=== PATIENT | female | born 2005 | race Hispanic/Latino ===

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

== ENCOUNTER 2023-04-09 16:49 | Emergency (ER) | payer OTHER, SELFPAY ==
[2023-04-09 17:40] LABS: Absolute Lymphocytes (CBC) 2.8 K/uL (0.7-4.9); Hematocrit 41.2 % (36.0-45.0); Lymphocytes % 32.2 % (15.3-44.8); MCV 89.4 fL (80-100); MPV 7.9 fL (7.6-11.3); Platelets 273 thou/uL (152-406); RBC Red Blood Cell Count 4.61 M/uL (3.86-4.86)
[2023-04-09] MEDS ORDERED: DIAZEPAM 5 MG TABLET ONE (18:03)
[2023-04-09] MEDS ORDERED: dexAMETHasone 10 MG/ML VIAL ONE (18:04)
[2023-04-09] MEDS ORDERED: MORPHINE 2 MG/ML SYR ONE (18:04)
[2023-04-09] MEDS ORDERED: ONDANSETRON 4 MG/2 ML VIAL ONE (18:04)
[2023-04-09] MEDS ORDERED: KETOROLAC 30 MG/ML INJ ONE (18:04)
[2023-04-09] MEDS ORDERED: NA CHLORIDE 0.9% 1,000 ML ONE (18:04)
[2023-04-09 18:08] LABS: Albumin 3.8 g/dL (3.4-5.0); Bilirubin Total 0.4 mg/dL (0.2-1.0); Potassium 3.9 mEq/L (3.5-5.1); Protein, Total 8.3 g/dL (6.4-8.2)
[2023-04-09 18:12] LABS: Specific Gravity 1.016 (1.005-1.030)
[2023-04-09 18:22] LABS: Specific Gravity 1.016 (1.005-1.030); Urine Bacteria None Seen /HPF (<20); Urine Bilirubin NEGATIVE (Negative); Urine Blood Negative (Negative); Urine Clarity Turbid (Clear); Urine Color Light-Yellow (Yellow); Urine Glucose NEGATIVE (Negative); Urine Mucus Slight /HPF (None Seen); Urine Protein NEGATIVE (Negative); Urine RBC <5 /HPF (None Seen); Urine Urobilinogen Normal (Normal)
--- NOTE | 2023-04-09 18:54 | RAD REPORT ---
EXAM DESCRIPTION: CT - Spine Lumbar Wo Con - 04/09/2023 6:24 pm CLINICAL HISTORY: PAIN COMPARISON: No comparisons TECHNIQUE: Axial noncontrast CT imaging of the lumbar spine was performed with coronal and sagittal re-formatted images. All CT scans are performed using dose optimization technique as appropriate and may include automated exposure control or mA/KV adjustment according to patient size. FINDINGS: No acute lumbar spine fracture seen. No aggressive marrow pattern or malalignment. Paraspinal tissues are normal in thickness. No paraspinal abscess or hematoma seen. Intervertebral disc disease assessment is inherently limited by CT. Small slightly left eccentric lynette tral disc protrusion present at L5-S1 . Within these limitations, no high-grade canal stenosis suspec gabriel. IMPRESSION: No acute fracture lumbar spine. Small central disc protrusion at L5-S1 is slightly left eccentric. No specific findings to explain a right-sided radiculopathy. Could consider MRI if symptom s persist. No evidence of spinal stenosis.
--- NOTE | 2023-04-09 18:58 | ER ---
Nurse's Notes [facility] Name: Niyah Galarza Age: 18 yrs Sex: Female : 2005 Arrival Date: 04/09/2023 Time: 16:49 Bed 14 Private MD: Diagnosis: Low back pain;Radiculopathy, lumbar region;Intervertebral disc disorders with radiculopathy, lumbosacral region-SMALL CENTRAL DISC PROTRUSION L5-S1, ECCENTRIC TO THE LEFT Presentation: 04/09 16:56 Chief complaint: Patient states: back pain, hurt self at gym. Has caused pain for 4 tm6 months. Since last night, right leg has pain and tingling feeling. Coronavirus screen: Vaccine status: Patient reports receiving the 2nd dose of the covid vaccine. Client denies travel out of the [place] in the last 14 days. Ebola Screen: Patient negative for fever greater than or equal to 101.5 degrees Fahrenheit, and additional compatible Ebola Virus Disease symptoms Patient denies exposure to infectious person. Patient denies travel to an Ebola-affected area in the 21 days before illness onset. No symptoms or risks identified at this time. Initial Sepsis Screen: Does the patient meet any 2 criteria? No. Patient's initial sepsis screen is negative. Does the patient have a suspected source of infection? No. Patient's initial sepsis screen is negative. Risk Assessment: Do you want to hurt yourself or someone else? Patient reports no desire to harm self or others. Onset of symptoms was April 09, 2023. 16:56 Method Of Arrival: Ambulatory tm6 16:56 Acuity: KEON 3 tm6 Triage Assessment: 16:56 General: Appears uncomfortable, Behavior is calm, cooperative. Pain: Complains of pain tm6 in left leg Pain currently is 7 out of 10 on a pain scale. Quality of pain is described as tingling. EENT: No signs and/or symptoms were reported regarding the EENT system. Neuro: Level of Consciousness is awake, alert, obeys commands, Oriented to person, place, time, situation, Appropriate for age. Cardiovascular: Capillary refill < 3 seconds Patient's skin is warm and dry. Respiratory: Airway is patent Respiratory effort is even, unlabored, Respiratory pattern is regular, symmetrical. GI: Abdomen is flat, non-distended. : No signs and/or symptoms were reported regarding the genitourinary system. Derm: No signs and/or symptoms reported regarding the dermatologic system. Musculoskeletal: Capillary refill < 3 seconds. Historical: - Allergies: 16:54 No Known Allergies; tm6 - Home Meds: 16:54 None [Active]; tm6 - PMHx: 16:54 None; tm6 - PSHx: 16:54 None; tm6 - Immunization history:: Adult Immunizations up to date, Client reports receiving the 2nd dose of the Covid vaccine. - Social history:: Smoking status: Patient reports the use of cigarette tobacco products, denies chronic smoking, but will smoke occasionally, Patient/guardian denies using alcohol. - Family history:: not pertinent. Screenin:37 [facility] ED Fall Risk Assessment (Adult) Score/Fall Risk Level 0 - 2 = Low Risk nj1 Oriented to surroundings, Maintained a safe environment, Hourly rounding (assess needs \T\ fall precautionary measures) done. Abuse screen: Denies threats or abuse. Denies injuries from another. Nutritional screening: No deficits noted. Tuberculosis screening: No symptoms or risk factors identified. Assessment: 17:35 General: Appears uncomfortable, Behavior is calm, cooperative, appropriate for age. nj1 Pain: Complains of pain in back and right gluteus stalin Pain currently is 7 out of 10 on a pain scale. 17:35 Neuro: Level of Consciousness is awake, alert, obeys commands, Oriented to person, nj1 place, time, situation, Reports numbness in right leg. Cardiovascular: Patient's skin is warm and dry. Respiratory: Airway is patent Respiratory effort is even, unlabored. 19:25 Reassessment: Patient appears in no apparent distress at this time. Patient and/or nj1 family updated on plan of care and expected duration. Pain level reassessed. Patient is alert, oriented x 3, equal unlabored respirations, skin warm/dry/pink. Patient states feeling better. Patient states symptoms have improved. Vital Signs: 16:54 BP 133 / 90; Pulse 103; Resp 20; Temp 98.4(O); Pulse Ox 100% on R/A; Weight 77.11 kg; tm6 Height 5 ft. 5 in. ; Pain 7/10; 16:56 BP 133 / 90; Pulse 103; Resp 20; Temp 98.4; Pulse Ox 100% ; Weight 77.11 kg; Height 5 tm6 ft. 5 in. ; Pain 7/10; 19:24 Pain 3/10; nj1 19:25 BP 120 / 60; Pulse 80; Resp 16; Pulse Ox 99% on R/A; nj1 16:56 Body Mass Index 28.29 (77.11 kg, 165.1 cm) tm6 16:54 Pain Scale: Adult tm6 16:56 Pain Scale: Adult tm6 19:24 Pain Scale: Adult nj1 ED Course: 16:49 Patient arrived in ED. rg4 16:56 Arm band placed on right wrist. tm6 16:58 Triage completed. tm6 17:01 Milka Reyez, DEVIKA is Primary Nurse. nj1 17:01 Duarte Guthrie MD is Attending Physician. mague 17:37 Patient has correct armband on for positive identification. Bed in low position. Call nj1 light in reach. Provided Education on: call light, fall precautions. 17:45 Inserted saline lock: 20 gauge in right antecubital area, using aseptic technique. nj1 Blood collected. 18:25 CT Lumbar Spine Wo Con In Process Unspecified. EDMS 18:58 Francisco Giles MD is Referral Physician. mague 19:27 No provider procedures requiring assistance completed. IV discontinued, intact, nj1 bleeding controlled. Administered Medications: 17:55 Drug: NS 0.9% IV 1000 ml IV at 1 bolus Per protocol; 1000 mL bolus Route: IV; Rate: 1 nj1 bolus; Site: right antecubital; 19:24 Follow up: Response: No adverse reaction; IV Status: Order to discontinue infusion; IV nj1 Intake: 300ml 17:55 Drug: Decadron - Dexamethasone IVP 10 mg IVP once Route: IVP; Site: right antecubital; nj1 19:24 Follow up: Response: No adverse reaction nj1 17:55 Drug: Diazepam PO 5 mg PO once Route: PO; nj1 19:23 Follow up: Response: No adverse reaction nj1 17:57 Drug: Ketorolac IVP 30 mg IVP once Route: IVP; Site: right antecubital; nj1 19:24 Follow up: Response: No adverse reaction; Pain is decreased nj1 17:59 Drug: Ondansetron IVP 4 mg IVP once; over 2 minutes Route: IVP; Site: right antecubital;nj1 19:23 Follow up: Response: No adverse reaction nj1 18:01 Drug: morphine IVP or IV 2 mg IVP once over 4 mins Route: IVP; Infused Over: 4 mins; nj1 Site: right antecubital; 19:24 Follow up: Pain 3/10 Adult; Response: No adverse reaction; Pain is decreased nj1 19:24 Not Given (Physician Discretion): morphineor iv 2 mg IVP once over 4 mins nj1 Medication: 19:27 VIS not applicable for this client. nj1 Intake: 19:24 IV: 300ml; Total: 300ml. nj1 Outcome: 18:58 Discharge ordered by . mague 19:27 Discharged to home ambulatory, nj1 19:27 Condition: stable 19:27 Condition: improved 19:27 Discharge instructions given to patient, Instructed on discharge instructions, follow up and referral plans. no drinking with medication, medication usage, safety practices, Demonstrated understanding of instructions, follow-up care, medications, Prescriptions given X 4, 19:28 Patient left the ED. nj1 Signatures: Dispatcher [employer] EDLA Duarte Guthrie MD MD cha Garcia, Rubi rg4 Milka Reyez RN RN nj1 Hilario Thomas RN RN tm6
--- NOTE | 2023-04-09 18:59 | EDPHYS ---
Physician Documentation [facility] Name: Niyah Galarza Age: 18 yrs Sex: Female : 2005 Arrival Date: 04/09/2023 Time: 16:49 Bed 14 Private MD: MARIA FERNANDA Physician Duarte Guthrie HPI: 04/09 17:41 This 18 yrs old Female presents to ER via Ambulatory with complaints of Back mague Pain, Numbness of Leg. 17:41 The patient presents with pain that is acute, and decreased range of motion, and mague weakness. The symptoms are located in the low back, lumbar area, left low back and right low back. 17:42 Onset: The symptoms/episode began/occurred 1 week(s) ago. Location: left low back and mague right low back. Associated signs and symptoms: Pertinent positives: numbness, tingling, weakness. The problem was sustained when bending over, when lifting heavy object. Modifying factors: The patient symptoms are alleviated by remaining still, rest, the patient symptoms are aggravated by any movement, bending, lifting. Severity of symptoms: At their worst the symptoms were moderate, in the emergency department the symptoms are actually worse, mildly. The patient has experienced similar episodes in the past, a few times. Historical: - Allergies: 16:54 No Known Allergies; tm6 - Home Meds: 16:54 None [Active]; tm6 - PMHx: 16:54 None; tm6 - PSHx: 16:54 None; tm6 - Immunization history:: Adult Immunizations up to date, Client reports receiving the 2nd dose of the Covid vaccine. - Social history:: Smoking status: Patient reports the use of cigarette tobacco products, denies chronic smoking, but will smoke occasionally, Patient/guardian denies using alcohol. - Family history:: not pertinent. ROS: 17:42 Constitutional: Negative for fever, chills, and weight loss, Eyes: Negative for injury, mague pain, redness, and discharge, ENT: Negative for injury, pain, and discharge, Neck: Negative for injury, pain, and swelling, Cardiovascular: Negative for chest pain, palpitations, and edema, Respiratory: Negative for shortness of breath, cough, wheezing, and pleuritic chest pain, Abdomen/GI: Negative for abdominal pain, nausea, vomiting, diarrhea, and constipation, : Negative for injury, bleeding, discharge, and swelling, MS/Extremity: Negative for injury and deformity, Skin: Negative for injury, rash, and discoloration, Neuro: Negative for headache, weakness, numbness, tingling, and seizure, Psych: Negative for depression, anxiety, suicide ideation, homicidal ideation, and hallucinations, Allergy/Immunology: Negative for hives, rash, and allergies, Endocrine: Negative for neck swelling, polydipsia, polyuria, polyphagia, and marked weight changes, Hematologic/Lymphatic: Negative for swollen nodes, abnormal bleeding, and unusual bruising, 17:42 Back: Positive for injury or acute deformity, decreased range of motion, pain at rest, pain with movement, radiated pain, of the lumbar area, left low back and right low back, 17:42 Neuro: Positive for tingling, weakness, of the buttocks, Exam: 17:42 Constitutional: This is a well developed, well nourished patient who is awake, alert, mague and in no acute distress. Head/Face: Normocephalic, atraumatic. Eyes: Pupils equal round and reactive to light, extra-ocular motions intact. Lids and lashes normal. Conjunctiva and sclera are non-icteric and not injected. Cornea within normal limits. Periorbital areas with no swelling, redness, or edema. ENT: Nares patent. No nasal discharge, no septal abnormalities noted. Tympanic membranes are normal and external auditory canals are clear. Oropharynx with no redness, swelling, or masses, exudates, or evidence of obstruction, uvula midline. Mucous membranes moist. Neck: Trachea midline, no thyromegaly or masses palpated, and no cervical lymphadenopathy. Supple, full range of motion without nuchal rigidity, or vertebral point tenderness. No Meningismus. Chest/axilla: Normal chest wall appearance and motion. Nontender with no deformity. No lesions are appreciated. Cardiovascular: Regular rate and rhythm with a normal S1 and S2. No gallops, murmurs, or rubs. Normal PMI, no JVD. No pulse deficits. Respiratory: Lungs have equal breath sounds bilaterally, clear to auscultation and percussion. No rales, rhonchi or wheezes noted. No increased work of breathing, no retractions or nasal flaring. Abdomen/GI: Soft, non-tender, with normal bowel sounds. No distension or tympany. No guarding or rebound. No evidence of tenderness throughout. Female : Normal external genitalia. Skin: Warm, dry with normal turgor. Normal color with no rashes, no lesions, and no evidence of cellulitis. MS/ Extremity: Pulses equal, no cyanosis. Neurovascular intact. Full, normal range of motion. Neuro: Awake and alert, GCS 15, oriented to person, place, time, and situation. Cranial nerves II-XII grossly intact. Motor strength 5/5 in all extremities. Sensory grossly intact. Cerebellar exam normal. Normal gait. Psych: Awake, alert, with orientation to person, place and time. Behavior, mood, and affect are within normal limits. 17:42 Back: pain, that is moderate, of the lumbar area, left low back and right low back, ROM is painful, normal spinal alignment noted, CVA tenderness, is absent, 17:45 Musculoskeletal/extremity: ROM: intact in all extremities, full active range of motion, mague full passive range of motion, Circulation is intact in all extremities. Sensation intact. Compartment Syndrome exam of affected extremity: is normal. DVT Exam: No signs of deep vein thrombosis. no pain, no swelling, no tenderness, negative Homans' sign noted on exam, no appreciated bluish discoloration, no erythema, no increased warmth, Vital Signs: 16:54 BP 133 / 90; Pulse 103; Resp 20; Temp 98.4(O); Pulse Ox 100% on R/A; Weight 77.11 kg; tm6 Height 5 ft. 5 in. ; Pain 7/10; 16:56 BP 133 / 90; Pulse 103; Resp 20; Temp 98.4; Pulse Ox 100% ; Weight 77.11 kg; Height 5 tm6 ft. 5 in. ; Pain 7/10; 19:24 Pain 3/10; nj1 19:25 BP 120 / 60; Pulse 80; Resp 16; Pulse Ox 99% on R/A; nj1 16:56 Body Mass Index 28.29 (77.11 kg, 165.1 cm) tm6 16:54 Pain Scale: Adult tm6 16:56 Pain Scale: Adult tm6 19:24 Pain Scale: Adult nj1 MDM: 17:02 Patient medically screened. mague 17:45 Differential diagnosis: chronic back pain, Fracture ruptured disc, Scoliosis spinal mague injury, sprain, vertebral fracture. Data reviewed: vital signs, nurses notes, lab test result(s), radiologic studies. Consideration of Admission/Observation Escalation of care including admission/observation considered. I considered the following discharge prescriptions or medication management in the emergency department Medications were administered in the Emergency Department. See MAR. Independent interpretation of the following test(s) in the Emergency Department CT Scan: My interpretation is ct lumbar spine. Test considered but Not performed: MRI: no mri lumbar spine. Care significantly affected by the following chronic conditions: no hx. Counseling: I had a detailed discussion with the patient and/or guardian regarding the historical points, exam findings, and any diagnostic results supporting the discharge/admit diagnosis, lab results, radiology results, the need for outpatient follow up, for definitive care, a family practitioner, a neurologist. 04/09 17:21 Order name: CBC with Diff; Complete Time: 18:33 [facility] 04/09 17:21 Order name: Comprehensive Metabolic Panel; Complete Time: 18:33 [facility] 04/09 17:21 Order name: Urinalysis w/ reflexes; Complete Time: 18:33 [facility] 04/09 17:21 Order name: PREGU; Complete Time: 18:33 [facility] 04/09 17:21 Order name: CT Lumbar Spine Wo Con mague Administered Medications: 17:55 Drug: NS 0.9% IV 1000 ml IV at 1 bolus Per protocol; 1000 mL bolus Route: IV; Rate: 1 nj1 bolus; Site: right antecubital; 19:24 Follow up: Response: No adverse reaction; IV Status: Order to discontinue infusion; IV nj1 Intake: 300ml 17:55 Drug: Decadron - Dexamethasone IVP 10 mg IVP once Route: IVP; Site: right antecubital; nj1 19:24 Follow up: Response: No adverse reaction nj1 17:55 Drug: Diazepam PO 5 mg PO once Route: PO; nj1 19:23 Follow up: Response: No adverse reaction nj1 17:57 Drug: Ketorolac IVP 30 mg IVP once Route: IVP; Site: right antecubital; nj1 19:24 Follow up: Response: No adverse reaction; Pain is decreased nj1 17:59 Drug: Ondansetron IVP 4 mg IVP once; over 2 minutes Route: IVP; Site: right antecubital;nj1 19:23 Follow up: Response: No adverse reaction nj1 18:01 Drug: morphine IVP or IV 2 mg IVP once over 4 mins Route: IVP; Infused Over: 4 mins; nj1 Site: right antecubital; 19:24 Follow up: Pain 3/10 Adult; Response: No adverse reaction; Pain is decreased nj1 19:24 Not Given (Physician Discretion): morphineor iv 2 mg IVP once over 4 mins nj1 Disposition Summary: 04/09/23 18:58 Discharge Ordered Notes: Location: Home mague Problem: new mague Symptoms: have improved mague Condition: Stable mague Diagnosis - Low back pain mague - Radiculopathy, lumbar region mague - Intervertebral disc disorders with radiculopathy, lumbosacral region - SMALL mague CENTRAL DISC PROTRUSION L5-S1, ECCENTRIC TO THE LEFT(04/09/23 19:01) Followup: mague - With: Private Physician - When: 2 - 3 days - Reason: Recheck today's complaints, Continuance of care, Re-evaluation by your physician Followup: mague - With: Francisco Giles MD - When: 2 - 3 days - Reason: Recheck today's complaints, Re-evaluation by your physician Discharge Instructions: - Discharge Summary Sheet mague - Acute Back Pain, Adult mague - Herniated Disk mague - Lumbosacral Radiculopathy mague - Musculoskeletal Pain [facility] - Back Injury Prevention, [id number] [facility] Forms: - Medication Reconciliation Form [facility] - Thank You Letter [facility] - Antibiotic Education mague - Prescription Opioid Use [facility] - Patient Portal Instructions [facility] - Leadership Thank You Letter [facility] Prescriptions: - acetaminophen-codeine 300-30 mg Oral tablet - take 2 tablet ORAL route every 6 hours as needed for pain; 20 tablet; Refills: mague 0, Product Selection Permitted - dexamethasone 2 mg Oral tablet - take 1 tablet ORAL route every 12 hours; 10 tablet; Refills: 0, Product [facility] Selection Permitted - Diclofenac Sodium 75 mg Oral tablet, delayed release (enteric coated) - take 1 tablet ORAL route 2 times per day; 20 tablet; Refills: 0, Product [facility] Selection Permitted - Cyclobenzaprine 5 mg Oral tablet - take 1 tablet ORAL route 3 times per day As needed; 21 tablet; Refills: 0, [facility] Product Selection Permitted Signatures: Dispatcher [employer] Duarte Batres MD MD cha Jaco, Norma, RN RN nj1 Hilario Thomas RN RN tm6 Corrections: (The following items were deleted from the chart) 19:01 18:58 Intervertebral disc disorders with radiculopathy, lumbosacral region mague bowser
[2023-04-09 19:42] VITALS: TEMP 98.4
[2023-04-09 19:59] VITALS: BP 120/60; O2SAT 99
== END 2023-04-09 19:28 | disposition home or self-care (01) ==
LOC: ER 16:49
DX: M51.17 Intervertebral disc disorders with radiculopathy, lumbosacral region (principal); F17.210 Nicotine dependence, cigarettes, uncomplicated
CPT/HCPCS: 96361; 85025; 81001; 36415; 81025; 80053; 72131; 96375; 96374; 99284; J1100; J2270; J2405; J7030